=== PATIENT | male | born 1975 | race American Indian/Alaskan Native ===

== ENCOUNTER 2016-07-05 17:13 | Emergency (ER) | payer BC ==
[2016-07-05 17:22] VITALS: BP 143/82; PULSE 94; RESP 16; TEMP 98.3; O2SAT 97; BMI 32.5
--- NOTE | 2016-07-05 17:39 | ED PDOC ---
Arrival/HPI - General Chief Complaint: ENT Problem Time Seen by Provider: 07/05/16 17:35 Historian: Patient - History of Present Illness Narrative History of Present Illness (Text): 07/05/16 17:36 41 y/o male, pmh including varicocele, nkda, c/o rt. sided throat pain on and off this week. Aching pain, aggravated by swallowing, no coughing, no fever or chills, no change in speech, no drooling, no night sweat, no fatigue or lethargic, no testicular swelling or parotid gland swelling, no dizziness, no other medical or psychological complaints. Past Medical History - Provider Review Nursing Documentation Reviewed: Yes - Cardiac Hx Cardiac Disorders: No - Psychiatric Hx Substance Use: No Family/Social History - Physician Review Nursing Documentation Reviewed: Yes Family/Social History: Unknown Family HX Smoking Status: Never Smoked Hx Alcohol Use: No Hx Substance Use: No Allergies/Home Meds Allergies/Adverse Reactions: Allergies latex Allergy (Verified 07/05/16 17:22) PAIN Review of Systems - Review of Systems Constitutional: absent: Fatigue, Fevers Eyes: absent: Vision Changes ENT: Sore Throat. absent: Hearing Changes Respiratory: absent: SOB, Cough Cardiovascular: absent: Chest Pain Gastrointestinal: absent: Abdominal Pain, Nausea, Vomiting Musculoskeletal: absent: Arthralgias, Back Pain Skin: absent: Rash, Pruritis, Skin Lesions, Laceration, Abscess, Ulcer, Cellulitis Neurological: absent: Headache Physical Exam Vital Signs Reviewed: Yes Vital Signs Temp Pulse Resp BP Pulse Ox 07/05/16 17:20 98.3 F 94 H 16 143/82 97 Temperature: Afebrile Blood Pressure: Normal Pulse: Regular Respiratory Rate: Normal Appearance: Positive for: Well-Appearing, Non-Toxic, Comfortable Pain Distress: Mild Mental Status: Positive for: Alert and Oriented X 3 - Systems Exam Head: Present: Atraumatic, Normocephalic Pupils: Present: PERRL Extroacular Muscles: Present: EOMI Conjunctiva: Present: Normal Ears: Present: NORMAL TM, Normal Canal. No: Erythema, TM Bulging, Fluid, TM Perf Mouth: Present: Moist Mucous Membranes, Normal Lips, Normal Tounge, Normal Teeth. No: Drooling, Trismus Pharnyx: Present: Other (Oral: +rt. tonsillitis with mild white exudates, uvula midline twith no deviation, airway patent, buccal mucosa moist and pink, no muffling sound. ). No: Peritonsilar Swelling, Uvular Deviation, Muffled/Hoarse Voice, Strider, Soft Palate/Uvular Edema Nose (Internal): Present: Normal Inspection, No Active Bleeding. No: Rhinorrhea , Septal Hematoma, Epistaxis Neck: Present: Normal Range of Motion Respiratory/Chest: Present: Clear to Auscultation, Good Air Exchange. No: Respiratory Distress, Accessory Muscle Use Cardiovascular: Present: Regular Rate and Rhythm, Normal S1, S2. No: Murmurs Abdomen: Present: Normal Bowel Sounds. No: Tenderness, Distention, Peritoneal Signs, Rebound Back: Present: Normal Inspection Upper Extremity: Present: Normal Inspection. No: Cyanosis, Edema Lower Extremity: Present: Normal Inspection. No: Edema Neurological: Present: GCS=15, Speech Normal, Motor Func Grossly Intact, Gait Normal, Memory Normal Skin: Present: Warm, Dry, Normal Color. No: Rashes Lymphatic: Present: Cervical Adenopathy (+rt. anterior cervical lymphenapathy) Psychiatric: Present: Alert, Oriented x 3, Normal Insight, Normal Concentration Medical Decision Making ED Course and Treatment: 07/05/16 17:38 -Discharge home with augmentin, ibuprofen, salt water gargling, soft food diet, stay hydrated, do not share food, follow up with your own pmd and ENT within 2 days, return to the ER for any new or worsening signs or symptoms. - PA / SCREEDMAN / Resident Statement MD/DO has reviewed & agrees with the documentation as recorded. Disposition/Present on Arrival - Present on Arrival Any Indicators Present on Arrival: No History of DVT/PE: No History of Uncontrolled Diabetes: No Urinary Catheter: No History of Decub. Ulcer: No History Surgical Site Infection Following: None - Disposition Have Diagnosis and Disposition been Completed?: Yes Diagnosis: Tonsillitis with exudate Disposition: HOME/ ROUTINE Disposition Time: 17:39 Patient Plan: Discharge Condition: GOOD Discharge Instructions (ExitCare): Tonsillitis (ED) Print Language: BHUTANESE Additional Instructions: Discharge home with augmentin, ibuprofen, salt water gargling, soft food diet, stay hydrated, do not share food, follow up with your own pmd and ENT within 2 days, return to the ER for any new or worsening signs or symptoms. Prescriptions: Amoxicillin/Clavulanate [Augmentin 875 MG-125 MG] 1 tab PO BID #20 tab Ibuprofen [Motrin Tab] 800 mg PO TID PRN #21 tab PRN Reason: Other Referrals: Chadd Sanchez DO [[facility]] - Follow up with primary Forms: WORK NOTE
== END 2016-07-05 17:49 | disposition home or self-care (01) ==
LOC: ED 17:13
DX: J03.90 Acute tonsillitis, unspecified (principal)

== ENCOUNTER 2016-07-14 19:47 | Emergency (ER) | payer BC ==
[2016-07-14 20:03] VITALS: TEMP 99.1; BMI 31.6
--- NOTE | 2016-07-14 20:09 | ED PDOC ---
Arrival/HPI - General Chief Complaint: Male Genitourinary Time Seen by Provider: 07/14/16 20:09 Historian: Patient - History of Present Illness Narrative History of Present Illness (Text): 07/14/16 20:09 This 41 yo male presents to this ED c/o dysuria x 2 days. Patient is requesting STD test. Denies testicular pain or penile discharge. Time/Duration: Other (2 days) Context: Home Past Medical History - Provider Review Nursing Documentation Reviewed: Yes - Infectious Disease Hx of Infectious Diseases: None - Cardiac Hx Cardiac Disorders: No - Pulmonary Hx Sleep Apnea: No - Neurological Hx Alzheimer's Disease: No - HEENT Hx HEENT Disorder: No - Renal Hx Renal Disorder: No - Endocrine/Metabolic Hx Endocrine Disorders: No - Hematological/Oncological Hx Blood Disorders: No - Integumentary Hx Dermatological Disorder: No - Musculoskeletal/Rheumatological Hx Musculoskeletal Disorders: No - Gastrointestinal Hx Gastrointestinal Disorders: No Hx Bowel Surgery: No - Genitourinary/Gynecological Hx Genitourinary Disorders: Yes Other/Comment: Bladder biopsy in past, hx of STDs - Psychiatric Hx Psychophysiologic Disorder: No Hx Substance Use: No - Anesthesia Hx Anesthesia: Yes Hx Anesthesia Reactions: No Family/Social History - Physician Review Nursing Documentation Reviewed: Yes Family/Social History: No Known Family HX Smoking Status: Never Smoked Hx Alcohol Use: No Hx Substance Use: No Allergies/Home Meds Allergies/Adverse Reactions: Allergies latex Allergy (Verified 07/14/16 20:10) PAIN Review of Systems - Review of Systems Constitutional: Normal. absent: Fatigue, Weight Change, Fevers Eyes: Normal ENT: Normal Respiratory: Normal Cardiovascular: Normal Gastrointestinal: Normal Genitourinary Male: Dysuria, Other (See HPI). absent: Frequency, Hematuria Musculoskeletal: Normal Skin: Normal Neurological: Normal Endocrine: Normal Hemo/Lymphatic: Normal Psychiatric: Normal Physical Exam Vital Signs Temp Pulse Resp BP Pulse Ox 07/14/16 20:49 80 18 139/92 H 99 07/14/16 20:03 99.1 F 79 19 140/87 98 Temperature: Afebrile Blood Pressure: Normal Pulse: Regular Respiratory Rate: Normal Appearance: Positive for: Well-Appearing, Non-Toxic, Comfortable Pain Distress: None Mental Status: Positive for: Alert and Oriented X 3 - Systems Exam Head: Present: Atraumatic, Normocephalic Pupils: Present: PERRL Extroacular Muscles: Present: EOMI Conjunctiva: Present: Normal Mouth: Present: Moist Mucous Membranes Neck: Present: Normal Range of Motion Respiratory/Chest: Present: Clear to Auscultation, Good Air Exchange. No: Respiratory Distress, Accessory Muscle Use Cardiovascular: Present: Regular Rate and Rhythm, Normal S1, S2. No: Murmurs Abdomen: Present: Normal Bowel Sounds. No: Tenderness, Distention, Peritoneal Signs Genitourinary Male: Present: Normal External Genitalia, Circumcised Penis. No: Lesions, Penile Discharge, Testicle Tenderness, Penile Swelling, Masses, Erythema, Hernias, Testicle Swelling Back: Present: Normal Inspection Upper Extremity: Present: Normal Inspection. No: Cyanosis, Edema Lower Extremity: Present: Normal Inspection. No: Edema Neurological: Present: GCS=15, CN II-XII Intact, Speech Normal Skin: Present: Warm, Dry, Normal Color. No: Rashes Psychiatric: Present: Alert, Oriented x 3, Normal Insight, Normal Concentration Medical Decision Making ED Course and Treatment: 07/14/16 21:45 Re-evaluation. Patient feels better. Discussed results and plan with patient who expresses understanding. All questions answered and there is agreement with the plan to discharge home with instructions. Patient stable for discharge. Return if symptoms persist or worsen. Re-evaluation Time: 21:45 Reassessment Condition: Re-examined, Improved - Lab Interpretations Lab Results: Lab Results 07/14/16 20:20: Urine Color yellow, Urine Appearance Clear, Urine pH 6.0, Ur Specific [place] 1.025, Urine Protein Negative, Urine Glucose (UA) Negative, Urine Ketones Negative, Urine Blood Large H, Urine Nitrate Negative, Urine Bilirubin Negative, Urine Urobilinogen 0.2, Ur Leukocyte Esterase Negative, Urine RBC Tntc, Urine WBC 1 - 3, Ur Epithelial Cells 3 - 4 - Medication Orders Current Medication Orders: Discontinued Medications Azithromycin (Zithromax) 1,000 mg PO STAT STA PRN Reason: Protocol Stop: 07/14/16 20:13 Last Admin: 07/14/16 20:36 Dose: 1,000 MG Ceftriaxone Sodium (Rocephin) 250 mg IM STAT STA PRN Reason: Protocol Stop: 07/14/16 20:12 Last Admin: 07/14/16 20:34 Dose: 250 MG IM Administration Charges Document 07/14/16 20:34 HI (Rec: 07/14/16 20:36 [facility]-[id number]) Injection Site MAR Injection Site Left Deltoid Charges for Administration # of IM Administrations 1 Disposition/Present on Arrival - Present on Arrival Any Indicators Present on Arrival: No History of DVT/PE: No History of Uncontrolled Diabetes: No Urinary Catheter: No History of Decub. Ulcer: No History Surgical Site Infection Following: None - Disposition Have Diagnosis and Disposition been Completed?: Yes Diagnosis: Dysuria Disposition: HOME/ ROUTINE Disposition Time: 21:46 Patient Plan: Discharge Condition: GOOD Discharge Instructions (ExitCare): Dysuria (ED) Additional Instructions: Call private doctor for follow up visit. call Urologist for revaluation of symptoms. Take medication as instructed, and avoid sun light and alcohol Prescriptions: Doxycycline Monohydrate 100 mg PO BID #28 tablet Cephalexin [Keflex] 500 mg PO BID #20 capsule
[2016-07-14] MEDS ORDERED: cefTRIAXone (Rocephin) 250 mg Inj IM STA (20:11)
[2016-07-14 20:50] VITALS: PULSE 80; O2SAT 99
[2016-07-14 21:08] LABS: URINE BILIRUBIN NEGATIVE (NEGATIVE); URINE BLOOD LARGE (NEGATIVE); URINE GLUCOSE (UA) NEGATIVE (NEGATIVE); URINE KETONE NEGATIVE (NEGATIVE); URINE LEUKOCYTE ESTERASE NEGATIVE Leu/uL (NEGATIVE); URINE PROTEIN NEGATIVE mg/dL (<30 mg/dL); URINE UROBILINOGEN 0.2 E.U./dL (<1 E.U./dL)
[2016-07-14 21:09] LABS: URINE APPEARANCE CLEAR (CLEAR)
[2016-07-14 21:14] LABS: URINE RBC TNTC /hpf (0-2)
[2016-07-14 22:09] VITALS: BP 137/70; RESP 16
== END 2016-07-14 22:04 | disposition home or self-care (01) ==
LOC: ED 19:47
DX: R30.0 Dysuria (principal)
CPT/HCPCS: 81001; 87086; 87491; 87591; 96372; 99284; J0696